=== PATIENT | female | born 1970 | race Caucasian/White ===

== ENCOUNTER 2016-05-06 04:58 | Observation (INO) | payer OTHER ==
[~2016-05-06] VITALS: Ht 170.2 cm; Wt 70.0 kg
[2016-05-06 05:01] VITALS: BP 148/84; PULSE 98; RESP 22; O2SAT 99
[2016-05-06 05:24] VITALS: BP 142/78; PULSE 98; RESP 20; O2SAT 96
[2016-05-06] MEDS ORDERED: 0.9% Sodium Chloride 1,000 ML IV ONE (05:28)
[2016-05-06] MEDS ORDERED: HYDROmorphone 1 mg/mL Inj IVPUSH ONE (05:30)
[2016-05-06] MEDS ORDERED: Ondansetron 2 mg/mL 2 mL Inj IVPUSH ONE (05:30)
[2016-05-06] MEDS ORDERED: Pantoprazole 4 mg/mL 10 mL Inj IVPUSH ONE (05:30)
[2016-05-06 05:44] LABS: INR 0.99 ratio; Mean Corpuscular Hemoglobin 31.6 pg (27.0-35.0); Mean Corpuscular Volume 91 fL (81-100)
[2016-05-06 05:45] LABS: BASOPHILS % (AUTO) 0.2 % (0-3); EOSINOPHILS % (AUTO) 0.1 % (0-5); MONOCYTES % (AUTO) 7.1 % (4-12); NEUTROPHILS % (AUTO) 85.8 % (40-74); Platelet Count 287 bil/L (150-400)
[2016-05-06 05:47] LABS: Magnesium 1.8 mg/dL (1.6-2.6)
--- NOTE | 2016-05-06 06:07 | ED.REPORT ---
HPI-Abd Pain F 40 and Over Date of Service May 06, 2016 ED Provider: Mack Landrum MD Patient is a 46 year old female who presents to the ED with epigastric pain with sudden onset 2100 last night that radiates down to her pelvis. Associated symptoms include nausea and vomiting. She denies back pain, dysuria, diaphoresis , or any other symptoms. She had 2 glasses of white wine last night. Nursing Notes Stated Complaint: ABD PAIN/ VOMITING Chief Complaint: Female Abdominal Pain Nursing Notes Reviewed: Yes Allergies: Uncoded Allergies: METRODIAZOLE (Allergy, Mild, 05/06/16) General Time Seen by MD: 05:18 Chief Complaint Abdominal pain Hx Obtained From: Patient Arrived By: Walk-in Sudden in Onset?: Yes Onset Occurred: 9 - 12 hours ago Symptom Duration: Since onset Past Medical History Past Medical History Reports: Depression Past Surgical History Rotator cuff Smoking History Former Smoker Social History Alcohol Use: "Social" Drug Use: Denies drug use Other Social History: Good social support, , Local resident Ambulatory Status Independent Review of Systems GI: Reports: Abdominal pain (Epigastric ), Nausea, Vomiting Female: Reports: Pelvic pain (Secondary to abdominal pain), Denies: Dysuria, Flank pain Complete sys rev & neg: except as marked. Skin: Denies Diaphoresis Physical Exam Vital Signs Vital Signs (First) Date Time Temp Pulse Resp B/P Pulse Ox O2 Delivery O2 Flow Rate FiO2 05/06/16 05:01 36.8 98 22 148/84 99 Room Air Initial VS: Reviewed Head / Eyes: Atraumatic, Normocephalic Skin: Warm, Dry Neurologic: Alert, Oriented, Nonfocal Psychiatric: Mood/affect normal, Behavior normal, Normal thought content General/Constitutional: Awake, Alert, Well developed Respiratory / Chest: Atraumatic, Breath sounds NL, Breath sounds = bilat, No respiratory distress Cardiovascular: Heart rate NL, Regular rhythm, Heart sounds NL Tenderness/Guarding/Rebound: Positive: Tender RLQ... (Moderate) RLQ tenderness with garding and rebound Back: Atraumatic Interpretation & Diagnostics US PELVIS: IMPRESSION: 1.6 cm dominant right adnexal cyst with dependent echogenic material , likely a small functional hemorrhagic cyst given the patient's age. In the setting of right pelvic pain, 6-12 week followup pelvic ultrasound may be considered to confirm expected size decrease or resolution of this finding. Dictated by: Alfredo Pedraza M.D. on 05/06/2016 at 11:09 Approved by: Alfredo Pedraza M.D. on 05/06/2016 at 11:09 Lab Results Interpretation Result Diagram: 05/06/16 0517 05/06/16 0517 Test 05/06/16 05:17 05/06/16 08:50 White Blood Count 10.8th/mm3 (3.8-10.1) Red Blood Count 4.11mil/mm3 (3.90-5.20) Hemoglobin 13.0g/dL (12.0-15.6) Hematocrit 37.4% (35.0-46.0) Mean Corpuscular Volume 91fL (81-100) Mean Corpuscular Hemoglobin 31.6pg (27.0-35.0) Mean Corpuscular Hemoglobin Concent 34.8% (32.0-37.0) Red Cell Distribution Width 12.5% (12.3-15.4) Platelet Count 287bil/L (150-400) Neutrophils (%) (Auto) 85.8% (40-74) Lymphocytes (%) (Auto) 6.8% (14-46) Monocytes (%) (Auto) 7.1% (4-12) Eosinophils (%) (Auto) 0.1% (0-5) Basophils (%) (Auto) 0.2% (0-3) Hold Purple Top Tube Received (Received) Prothrombin Time 10.6sec (8.1-12.5) Prothromb Time International Ratio 0.99ratio Hold Blue Top Tube Received (Received) Sodium Level 137mEq/L (134-144) Potassium Level 4.0mEq/L (3.5-5.2) Chloride Level 98mEq/L (97-108) Carbon Dioxide Level 23mmol/L (18-29) Blood Urea Nitrogen 15mg/dL (6-24) Creatinine 0.67mg/dL (0.57-1.00) Estimat Glomerular Filtration Rate 135mL/min (>59) Glucose Level 133mg/dL (60-99) Calcium Level 9.4mg/dL (8.5-10.1) Magnesium Level 1.8mg/dL (1.6-2.6) Total Bilirubin 0.4mg/dL (0.0-1.2) Aspartate Amino Transf (AST/SGOT) 39U/L (0-50) Alanine Aminotransferase (ALT/SGPT) 39U/L (0-32) Alkaline Phosphatase 49U/L (25-150) Total Protein 7.6g/dL (6.4-8.4) Albumin 4.2g/dL (3.4-5.0) Lipase 27U/L (13-60) Hold [place] Top Tube Received (Received) Hold [place]ique Top Tube Received (Received) Urine Color Yellow (YELLOW) Urine Appearance Clear (CLEAR,HAZY) Urine pH 6.5 (5.0-8.0) Urine Specific [place] 1.020 (1.003-1.035) Urine Protein Negativemg/dL (NEG,TRACE) Urine Glucose (UA) Negativemg/dL (NEGATIVE) Urine Ketones 80mg/dL (NEGATIVE) Urine Occult Blood Negative (NEGATIVE) Urine Nitrite Negative (NEGATIVE) Urine Bilirubin Negative (NEGATIVE) Urine Urobilinogen Normalmg/dL (NORMAL) Urine Leukocyte Esterase Negative (NEGATIVE) Urine RBC 0-2/hpf (0-2) Urine WBC 0-5/hpf (0-5) Urine Epithelial Cells Few/hpf (NONE-MOD) Urine Crystals None seen (NONE SEEN) Urine Bacteria Few/hpf (NONE-FEW) Urine Hyaline Casts None/lpf (NONE) Urine Granular Casts None seen (NONE SEEN) Urine Waxy Casts None seen (NONE SEEN) Urine Red Blood Cell Casts None seen (NONE SEEN) Urine White Blood Cell Casts None seen (NONE SEEN) Urine Mucus None seen (None Seen) Urine Trichomonas None seen (NONE SEEN) Urine Yeast None (NONE SEEN) Urinalysis Comment None Urine Culture Reflexed Not indicated CT Abd / Pelvis Interpretation IMPRESSION: No imaging explanation for right lower quadrant abdominal pain. The appendix appears normal in caliber. Dictated by: Alfredo Pedraza M.D. on 05/06/2016 at 9:30 Approved by: Alfredo Pedraza M.D. on 05/06/2016 at 9:30 Study type: Abdom CT oral contrast Interpretation / Wet Read by: Interpret - Radiologist Re-Eval/Medical Decision Med Decision/Clinical Course Despite the normal imaging and minimally abnormal laboratory data, I am concerned about subacute appendicitis none the less. We will admit her for observation to surgery. Re-Evaluation/Progress #1: Time of Eval: 09:55 )( Re-Eval Abdomen: Tenderness Re-Evaluation/Progress Note: Rechecked patient discussed CT results and desire for ultrasound. Patient understands and agrees with plan. All questions addressed at this time. Re-Evaluation/Progress #2: Time of Eval: 11:38 )( Re-Eval Abdomen: Tenderness Re-Evaluation/Progress Note: Discussed need for admission. Patient understands and agrees with plan. All questions addressed at this time. Consultation : Referral / Consult Name: Shari Gong MD Consulted With: Surgeon Call Returned at: 10:56 Trampoline Team Coach: Will see patient, Agrees with plan, Accepts admit Note: Discussed patient's case. Agrees to see patient. Admitted Counseled Regarding: Diagnosis, Lab results, Need for admission Discharge & Departure Primary Impression: Acute abdominal pain Disposition: ADMITTED TO HOSPITAL Referrals: Ivette Antonio (PCP) Scribe Attestation Portions of this note were transcribed by Felipa Tucker. I, Dr. Landrum personally performed the history, physical exam and medical decision-making; I reviewed and confirmed the accuracy of the information in the transcribed note. Signed by: Felipa Tucker 05/06/2016, 1150 copies to: Ivette Antonio Kirk H MD May 06, 2016 06:07 FELIPA TUCKER May 06, 2016 07:31
[2016-05-06 06:49] VITALS: BP 132/72; PULSE 95; RESP 12; O2SAT 96
[2016-05-06] MEDS ORDERED: Promethazine Inj 25 MG in Dextrose 5%-Pha MIX 50 ML IV ONE (06:55)
[2016-05-06] MEDS ORDERED: Iohexol 300 mg/mL 30 mL Inj PO ONE (07:45)
[2016-05-06 09:09] LABS: APPEARANCE,URINE CLEAR (CLEAR,HAZY); COLOR,URINE YELLOW (YELLOW); OCCULT BLOOD,URINE NEGATIVE (NEGATIVE); PH,URINE 6.5 (5.0-8.0); UROBILINOGEN,URINE NORMAL (NORMAL)
--- NOTE | 2016-05-06 09:31 | DRSVH ---
PROCEDURE: CT ABDOMEN AND PELVIS WITHOUT CONTRAST ([id number]) INDICATIONS: 46 year-old female with right lower quadrant pain. TECHNIQUE: Patient declined intravenous contrast. After the administration of oral contrast, 5 mm thick sections acquired from the diaphragms to the symphysis. 5 mm coronal and sagittal reformats were performed. For radiation dose reduction, the following was used: automated exposure control, adjustment of mA and/or kV according to patient size. COMPARISON: None. FINDINGS: Image quality: Excellent. ABDOMEN: Lung bases: Lung bases are clear. Heart size is normal. Solid organs: Liver and spleen are normal in size. Gallbladder wall thickness is normal. Pancreas is normal in size. No adrenal nodules. Both kidneys are normal in size, without hydronephrosis or n ephrolithiasis. Peritoneum and bowel: Bowel loops demonstrate normal wall thickness and caliber. The appendix is no rmal in overall caliber at 7 mm, best seen on coronal image 22. No free fluid or air. Nodes and vessels: No retroperitoneal or mesenteric adenopathy by size criteria. Aorta and inferior vena cava are normal in size. Miscellaneous: No ventral hernias. PELVIS: Genitourinary: Bladder wall thickness is normal. Uterus is normal in size. The ovaries are not well seen in the absence of intravenous contrast. Miscellaneous: No inguinal hernias or adenopathy. Bones: No suspicious bony lesions. No vertebral body compression fractures. IMPRESSION: No imaging explanation for right lower quadrant abdominal pain. The appendix appears norm al in caliber. Dictated by: Alfredo Pedraza M.D. on 05/06/2016 at 9:30 Approved by: Alfredo Pedraza M.D. on 05/06/2016 at 9:30
[2016-05-06] MEDS ORDERED: Ondansetron 2 mg/mL 2 mL Inj IVPUSH PRN ×2 (09:50→11:15)
[2016-05-06] MEDS: HYDROmorphone 0.5 mg/0.5 mL iSecure Syringe IVPUSH PRN (10:04)
--- NOTE | 2016-05-06 11:11 | DRSVH ---
PROCEDURE: US PELVIC SONOGRAM + TRANSVAGINAL SONOGRAM INDICATIONS: 46 year-old female with right lower quadrant abdominal pain. TECHNIQUE: Real-time scanning was performed of the pelvic organs, with image documentation. Additional endovagi nal scanning was necessary due to incomplete visualization of the adnexal and endometrial structures by transabdominal scanning. COMPARISON: [facility], CT, CT ABD PELVIS WO CON, 05/06/2016, 9:11. FINDINGS: Transabdominal scanning: No pathologic free abdominal or pelvic fluid. Endovaginal scanning: Uterus: Uterus is normal in size at 9.6 x 6.9 x 4.8 cm. The endometrium measures 11.2 mm in combine d thickness. Ovaries: Both ovaries appear normal in size, measuring 3.7 x 2.4 x 1.6 cm on the right, and 2.3 x 1.9 x 1.1 cm on the left. Dominant right adnexal cyst measures 1.6 x 1.1 x 1.6 cm, containing dependent echogenic material. IMPRESSION: 1.6 cm dominant right adnexal cyst with dependent echogenic material, likely a small func tional hemorrhagic cyst given the patient's age. In the setting of right pelvic pain, 6-12 week follo wup pelvic ultrasound may be considered to confirm expected size decrease or resolution of this findi ng. Dictated by: Alfredo Pedraza M.D. on 05/06/2016 at 11:09 Approved by: Alfredo Pedraza M.D. on 05/06/2016 at 11:09
[2016-05-06] MEDS ORDERED: Piperacillin-Tazo 3.375 Gm Inj 3.375 GM in Dextrose 5% Minibag Plus 50 ML IV ONE (11:15)
--- NOTE | 2016-05-06 13:11 | HP ---
[address] [address] HISTORY AND PHYSICAL PATIENT: AZAM NGUYEN : 1970 MR#: [id number] ADMIT: 05/06/2016 JOB ID: [id number] CHIEF COMPLAINT: Abdominal pain. This consultation was requested by Mack Landrum MD of the Emergency Department. HISTORY OF PRESENT ILLNESS: This is a 47-year-old healthy woman who presented to the emergency department today with abdominal pain. It began late last night around 11 p.m. after she went to bed and migrated to the right lower quadrant. She also had vomiting. Initially she thought she was having a gastroenteritis syndrome based on what she ate last night, however, the pain persisted as well as nausea, so she presented to the emergency department. White blood cell count was 10.8. CT scan of the abdomen and pelvis was ordered and reveals a 7 mm appendix, with no imaging explanation for right lower quadrant abdominal pain. Pelvic ultrasound was then performed which shows a right adnexal cyst with dependent echogenic material, 1.6 cm in size, likely a small functional hemorrhagic cyst. Because her history and physical examination are very consistent with acute appendicitis, Dr. Landrum asked my opinion with regards to whether she could have a low-grade early acute appendicitis not detectable on CT scan. PAST MEDICAL HISTORY: Depression. PAST SURGICAL HISTORY: 1. Breast augmentation. 2. Varicose vein surgery. 3. Right shoulder surgery. MEDICATIONS: Wellbutrin. ALLERGIES: METRONIDAZOLE. FAMILY HISTORY: Maternal aunt has multiple myeloma. SOCIAL HISTORY: She quit smoking 16 years ago, drinks approximately one alcoholic beverage daily on average, and lives with her and two adult children. Ivette Antonio is her nurse practitioner, and is also her best friend, and is present in the room today along with her . REVIEW OF SYSTEMS: Eleven point review of systems is positive for abdominal pain, nausea, vomiting, pelvic pain, and is otherwise negative. PHYSICAL EXAMINATION: Temperature 36.8, heart rate 98, blood pressure 148/84, respiratory rate 22, saturation 99% on room air. General: Awake, alert, no acute distress. Head: Normocephalic. Neck: Supple. Cardiac: Regular rate and rhythm. She has a soft systolic murmur. Respiratory: Clear to auscultation bilaterally. Abdomen: Soft, flat, nondistended. She is very tender at McBurney point between the ASIS and umbilicus. Nontender in the remaining quadrants of the abdomen. No rebound or guarding. Extremities: No edema. Skin: No outstanding lesions. Psychiatric: Normal cognition and judgment. LABORATORIES: White blood cell count is 10.8. CBC is otherwise within normal limits. Comprehensive metabolic panel is otherwise within normal limits with the exception of ALT of 39. INR is 0.99. Urinalysis is normal. IMAGING: Images from the CT scan of the abdomen and pelvis are personally reviewed. Her appendix is visible and when I measure myself on coronal imaging it seems to be closer to 10 mm in size. However, the radiologist measures it to be 0.7 cm in size. There is no associated fat stranding. As noted above, pelvic ultrasound shows a right adnexal cyst, which looks like a small functional hemorrhagic cyst given her age. ASSESSMENT: A 46-year-old woman with a history of physical examination very consistent with acute appendicitis, but without overt appendicitis on CT scan. RECOMMENDATIONS: I recommend administration of antibiotics and admission with observation in the hospital. I discussed with this patient that if a CT scan had not been performed, her overall clinical picture would be very consistent with acute appendicitis and appendectomy would be recommended. However, in the setting of an otherwise normal-appearing CT scan, this does have a chance of resulting in a negative appendectomy, meaning that she would not have had appendicitis. We also discussed the risk of failure with treatment with antibiotics in the setting of early acute appendicitis, if indeed she does have appendicitis. This includes the risk of needing to have the appendix removed at a later date, which is a possibility. She prefers non operative management at this time and, therefore, will be admitted and antibiotics will be administered. If her symptoms improve, it is possible that she will be discharged with antibiotics alone. However, I did offer her consideration of laparoscopy with appendectomy if she is willing to undergo the risks of indicative appendectomy. She wants to discuss this with her , and in the meantime, would like to avoid surgery.
[2016-05-06 14:28] VITALS: BP 115/74; PULSE 68; RESP 16; O2SAT 98
[2016-05-06] MEDS: 0.9% Sodium Chloride 1,000 ML IV SCH (15:28)
[2016-05-06] MEDS ORDERED: bupropion PO (19:08)
--- NOTE | 2016-05-06 19:40 | NUR ---
Arrival to Floor Patient arrived to floor from ED. Patient alert and oriented, no nausea but complains of headache. Patient given 975 of Tylenol, which was effective for headache. Ordered IV fluids administered. Care is ongoing.
[2016-05-06 21:16] VITALS: BP 134/86; PULSE 70; RESP 18; O2SAT 98
[2016-05-06] MEDS: Piperacillin-Tazo 3.375 Gm Inj 3.375 GM in Dextrose 5% Minibag Plus 50 ML IV SCH (23:14)
[2016-05-07] VITALS (10 sets, daily range): BP systolic 107–154; BP diastolic 60–83; PULSE 68–104; RESP 14–20; O2SAT 94–100
[2016-05-07] MEDS: Piperacillin-Tazo 3.375 Gm Inj 3.375 GM in Dextrose 5% Minibag Plus 50 ML IV SCH ×2 (00:30→10:39)
[2016-05-07] MEDS: 0.9% Sodium Chloride 1,000 ML IV SCH ×3 (00:49→17:14)
[2016-05-07 03:41] LABS: Mean Corpuscular Hemoglobin 31.2 pg (27.0-35.0)
[2016-05-07] MEDS: HYDROmorphone 0.5 mg/0.5 mL iSecure Syringe IVPUSH PRN (05:00)
[2016-05-07] MEDS ORDERED: MetoCLOpramide 5 mg/mL 2 mL Inj IV PRN (07:00)
--- NOTE | 2016-05-07 08:21 | NUR ---
C/o headache overnight. States history of migraines. Tylenol given and patient states pain reduced to 3. She slept, then awoke with increased headache rated 8-9. IV dilaludid 0.5mg given and pain again reduced to 3 but within 1hr she had nausea and vomiting that she attributes to the narcotic. Headache again increased, Zofran given but ineffective for nausea, so IV Reglan administered and day shift to reassess.
[2016-05-07] MEDS ORDERED: fentaNYL-PF 50 mCg/mL 2 mL Inj IVPUSH PRN (10:40)
[2016-05-07] MEDS ORDERED: Lactated Ringer's 500 ML IV PRN (10:40)
[2016-05-07] MEDS ORDERED: Phenylephrine 10,000 mCg/mL Inj IVPUSH PRN (10:40)
[2016-05-07] MEDS ORDERED: HYDROmorphone 1 mg/mL Inj IVPUSH PRN (10:40)
[2016-05-07] MEDS ORDERED: Dexamethasone 4 mg/mL Inj IVPUSH PRN (10:40)
[2016-05-07] MEDS ORDERED: EPHEDrine Sulfate 50 mg/mL Inj IVPUSH PRN (10:40)
[2016-05-07] MEDS ORDERED: Lactated Ringer's 1,000 ML IV SCH (10:40)
--- NOTE | 2016-05-07 10:40 | PCM.HPANE ---
Patient Data Surgeon Admitting Provider:Shari Gong MD Attending Provider:Shari Gong MD Primary Care Physician:Ivette Antnoio Other Provider: Reason for Visit Abd Pain Ht/WT & BMI Height (Feet): 5 Height (Inches): 7.00 Weight (Kilograms): 70.000 Body Mass Index 24.22 Allergies Coded Allergies: metronidazole (Unverified Allergy, Mild, UNKNOWN, 05/06/16) Past Anesthesia History Anesthesia History: Positive for:: Anesthesia Reactions (Very nauseated when coming out of anesthesia) Diabetes History Hx Diabetes?: No MRSA MRSA: No Medications Reported Medications [bupropion] No Conflict [id number] Mg PO DAILY 05/06/16 History History of ENT Problems?: No HEENT History: Denies:: Cataracts Dysphagia Glaucoma Sinus Problem Hx of Heart Problems?: No Cardiovascular History: Denies:: Cardiac Surgery Chest Pain Congestive Heart Failure Edema Heart Murmur Hypertension Irregular Heartbeat Pacemaker Thrombophlebitis Hx of Respiratory Problem?: No Hx Neurologic Problems?: No Hx of GI Problems?: Yes Other GI Pertinent History: Patient reports history of IBS. Hx of Problems?: No Female Hx: Denies:: Currently Endometriosis Pelvic Inflammatory Problems with Breasts? Hx Musculoskeletal Problems?: Yes Hx of Psycho/Social Problems?: No Hx Surgeries?: Yes (Roator cuff/labrium, bicep) Hx Any Other Health Problems?: No Other History: Denies:: Cancer Hospitalization Thyroid Disease History Blood Transfusions: Positive for:: Accept Blood Products? Denies:: Blood Transfuse Reaction Blood Transfusions Hx Diabetes: No Hx Alcohol Use: Yes (Socially)Alcoholic Drinks Per Day: "Two glasses of wine a few times per week"Hx Substance Use: No Smoking Status: Former Smoker Have You Smoked inLast 12 mo: No Stop/Bang Treated for Sleep Apnea?: No Do You Have a CPAP Machine?: No S-Snoring: Do You Snore Loudly: No T-Tired: feel tired, fatigued: No O-Obsered: Observed not breath: No P-Blood Pressure: treated: No B- Body Mass Index > 35 kg/m2: No A- Age over 50: No N- Neck Large Circumference: No G- Gender Male: No GLENDY Total Score: 0 Risk Assessment Category Category 1A: Patient has history of documented sleep apnea, and HAS NOT received any narcotic, sedative or anesthesia administration during this stay. Category 1B: Patient has history of documented sleep apnea, and HAS received any narcotic , sedative or anesthesia administration during this stay Category 2: Patient has SUSPECTED Obstructive Sleep Apnea, and HAS received any narcotic , sedative or anesthesia administration during this stay. Category 3: Patient has SUSPECTED Obstructive Sleep Apnea and HAS NOT received narcotic, sedative or anesthesia administration during this stay. Category 4: Outpatient in Procedural Areas with known sleep apnea or who screen positive for High Risk via the STOP/BANG questionnaire. Exam Exam Vital Signs Vital Signs Date Time Temp Pulse Resp B/P Pulse Ox O2 Delivery O2 Flow Rate FiO2 05/07/16 10:18 36.8 85 18 136/77 97 05/07/16 05:26 37.1 68 18 107/60 95 Room Air General Appearance: Alert, Oriented X3, Cooperative HEENT/AIRWAY: MP 2 Lungs: Normal Air Movement Heart: Exam Unremarkable Meds/Labs/Diagnostics Admission Meds Current Medications Piperacillin Sod/ Tazobactam Sod 3.375 gm/Dextrose/ Water 50 ml @ 100 mls/hr ONCE ONCE IV Last administered on 05/06/16at 12:03; Start 05/06/16 at 11:15; Stop 05/06/16 at 11:44; Status DC Sodium Chloride 1,000 ml @ 100 mls/hr Q10H IV Last administered on 05/07/16 10 :32; Start 05/06/16 at 11:14 Piperacillin Sod/ Tazobactam Sod/ Dextrose/Water (Zosyn 3.375 Gm Inj/D5W Minibag Plus) 50 ml @ 12.5 mls/hr Q8 IV Last administered on 05/06/16at 23:14 ; Start 05/06/16 at 21:15 Sumatriptan Succinate (Imitrex) 100 mg OT ONCE PO Last administered on 09:02; Start 05/07/16 at 06:50; Stop 05/07/16 at 06:51; Status DC Labs Test 05/06/16 05:17 05/06/16 08:50 05/07/16 03:25 Neutrophils (%) (Auto) 85.8% (40-74) Lymphocytes (%) (Auto) 6.8% (14-46) Monocytes (%) (Auto) 7.1% (4-12) Eosinophils (%) (Auto) 0.1% (0-5) Basophils (%) (Auto) 0.2% (0-3) Hold Purple Top Tube Received (Received) Prothrombin Time 10.6sec (8.1-12.5) Prothromb Time International Ratio 0.99ratio Hold Blue Top Tube Received (Received) Sodium Level 137mEq/L (134-144) Potassium Level 4.0mEq/L (3.5-5.2) Chloride Level 98mEq/L (97-108) Carbon Dioxide Level 23mmol/L (18-29) Blood Urea Nitrogen 15mg/dL (6-24) Creatinine 0.67mg/dL (0.57-1.00) Estimat Glomerular Filtration Rate 135mL/min (>59) Glucose Level 133mg/dL (60-99) Calcium Level 9.4mg/dL (8.5-10.1) Magnesium Level 1.8mg/dL (1.6-2.6) Total Bilirubin 0.4mg/dL (0.0-1.2) Aspartate Amino Transf (AST/SGOT) 39U/L (0-50) Alanine Aminotransferase (ALT/SGPT) 39U/L (0-32) Alkaline Phosphatase 49U/L (25-150) Total Protein 7.6g/dL (6.4-8.4) Albumin 4.2g/dL (3.4-5.0) Lipase 27U/L (13-60) Hold [place] Top Tube Received (Received) Hold Monique Top Tube Received (Received) Urine Color Yellow (YELLOW) Urine Appearance Clear (CLEAR,HAZY) Urine pH 6.5 (5.0-8.0) Urine Specific [place] 1.020 (1.003-1.035) Urine Protein Negativemg/dL (NEG,TRACE) Urine Glucose (UA) Negativemg/dL (NEGATIVE) Urine Ketones 80mg/dL (NEGATIVE) Urine Occult Blood Negative (NEGATIVE) Urine Nitrite Negative (NEGATIVE) Urine Bilirubin Negative (NEGATIVE) Urine Urobilinogen Normalmg/dL (NORMAL) Urine Leukocyte Esterase Negative (NEGATIVE) Urine RBC 0-2/hpf (0-2) Urine WBC 0-5/hpf (0-5) Urine Epithelial Cells Few/hpf (NONE-MOD) Urine Crystals None seen (NONE SEEN) Urine Bacteria Few/hpf (NONE-FEW) Urine Hyaline Casts None/lpf (NONE) Urine Granular Casts None seen (NONE SEEN) Urine Waxy Casts None seen (NONE SEEN) Urine Red Blood Cell Casts None seen (NONE SEEN) Urine White Blood Cell Casts None seen (NONE SEEN) Urine Mucus None seen (None Seen) Urine Trichomonas None seen (NONE SEEN) Urine Yeast None (NONE SEEN) Urinalysis Comment None Urine Culture Reflexed Not indicated White Blood Count 3.7th/mm3 (3.8-10.1) Red Blood Count 3.56mil/mm3 (3.90-5.20) Hemoglobin 11.1g/dL (12.0-15.6) Hematocrit 33.1% (35.0-46.0) Mean Corpuscular Volume 93.0fL (81-100) Mean Corpuscular Hemoglobin 31.2pg (27.0-35.0) Mean Corpuscular Hemoglobin Concent 33.5% (32.0-37.0) Red Cell Distribution Width 13.1% (12.3-15.4) Platelet Count 218bil/L (150-400) Plan Impression Patient chart reviewed, patient interviewed and anesthestic plan with risks, benefits, and alternatives discussed, and informed consent obtained. ASA Physical Status: ASA2 Mod Systemic Disease Anesthetic Plan: GA Bene/Risks/Altern/Consents: Yes HP Complete Prior to Induction: Yes Eliel Bautista MD May 07, 2016 10:40
[2016-05-07] MEDS ORDERED: fentaNYL-PF 50 mCg/mL 2 mL Inj ONE (12:00)
[2016-05-07] MEDS ORDERED: Dexamethasone 4 mg/mL Inj ONE (13:25)
[2016-05-07] MEDS ORDERED: Ondansetron 2 mg/mL 2 mL Inj ONE (13:25)
[2016-05-07] MEDS ORDERED: Propofol 10,000 mCg/mL 20 mL Inj ONE (13:25)
[2016-05-07] MEDS ORDERED: Rocuronium 10 mg/mL 5 mL Inj ONE (13:25)
--- NOTE | 2016-05-07 14:29 | NUR ---
To OR Pt NPO since midnight, IV SL, report given to LUCY Julian OR. Consent has not yet been signed, needs more detail from doctor. Pt a&ox3, able to walk to [facility] w/ strong steady gait.
--- NOTE | 2016-05-07 14:56 | PROG NOTE ---
[address] [address] PROGRESS NOTE PATIENT: AZAM NGUYEN : 1970 MR#: [id number] ADMIT: 05/06/2016 JOB ID: [id number] DATE: 05/07/2016 SUBJECTIVE: This is a 46-year-old woman with history and physical findings consistent with acute appendicitis. Although her CT scan was read as negative by the radiologist, on my assessment it is equivocal. Overnight she had a migraine and required Imitrex. She has been n.p.o. She continues to have pain at McBurney's point in her abdomen. She is worried that she may have appendicitis that is not resolving. OBJECTIVE: Vital signs are within normal limits. General: Awake, alert. Mild distress due to her headache. Abdomen: Tenderness at McBurney's point is the same compared to yesterday. Her abdomen is otherwise flat and soft, without tenderness of the remaining quadrants. ASSESSMENT: A 46-year-old woman with probable early acute appendicitis. No change in clinical status compared to yesterday. PLAN: We re-discussed observation and antibiotics approach versus considering surgical appendectomy. With all the potential factors, the patient and I decided together to proceed with laparoscopic appendectomy, which will both provide an answer as to whether not she does indeed have acute appendicitis, which I highly suspect she does, and will probably relieve the pain that she is experiencing in the right lower quadrant and relieve her of the concern for recurrent appendicitis in the future. We discussed all the risks and benefits, including the risk of negative appendectomy, she elects to proceed.
[2016-05-07] MEDS ORDERED: Bupivacaine-MPF 0.5% W/EPI 30 mL Inj INFILTRATE ONE (15:11)
[2016-05-07] MEDS ORDERED: Lactated Ringer's 1,000 ML IV ONE (15:11)
--- NOTE | 2016-05-07 16:10 | PCM.ANEP1 ---
Post Anesthesia Phase 1 PACU Phase 1 Assessment Vital Signs Vital Signs Date Time Temp Pulse Resp B/P Pulse Ox O2 Delivery O2 Flow Rate FiO2 05/07/16 10:18 36.8 85 18 136/77 97 Anesthetic Administered: GA GALICIA's with Equal Strength: Yes Pain: No (Headache, 5/10) Pain Scale Score: 7 Nausea or Vomiting: No Oxygen Delivery: Room Air Lungs: Normal Air Movement Dermatome Level: Full Sensation Eliel Bautista MD May 07, 2016 16:10
--- NOTE | 2016-05-07 16:11 | PCM.ANEP2 ---
Post Anesthesia Evaluation ASA/CMS Post Anesthesia VS in Patient's Normal Range?: Yes Resp Stable; Airway Patent?: Yes CV Function & Hydration Stable: Yes Mental Status Recovered?: Yes Pain control Satisfactory?: Yes N/V Control Satisfactory?: Yes Eliel Bautista MD May 07, 2016 16:11
[2016-05-07] MEDS ORDERED: Sodium Chloride LOK Flush 10 mL Syringe IVFLUSH PRN (16:35)
[2016-05-07] MEDS ORDERED: MetoCLOpramide 5 mg/mL 2 mL Inj IVPUSH PRN (16:35)
--- NOTE | 2016-05-07 16:48 | PCM.SURGOP ---
Surgical Operative Report Date of Service: May 07, 2016 Pre Operative Diagnosis Acute appendicitis Post Operative Diagnosis Acute appendicitis Procedure: Laparoscopic appendectomy Surgeon and Grain Elevator Agent: Surgeon: Shari Gong M.D. Assistants: None Indication for Procedure This is a 46-year-old woman who presented with abdominal pain which was epigastric and progressed to the right lower quadrant. She underwent CT scan which was read by the radiologist as negative for appendicitis. She also underwent a transvaginal ultrasound and ovaries did not appear to have pathology to explain her right lower quadrant tenderness. She underwent one night of observation with antibiotics in the hospital, but continued to have tenderness at McBurney's point. After thorough discussion of risks and benefits , decision was made to proceed to laparoscopic appendectomy. Findings: Inflamed, enlarged appendix consistent with acute appendicitis. Moderate benign free fluid in the pelvis. Procedure Details The patient was brought to the operating room and placed in supine position. General endotracheal anesthesia was smoothly induced. Antibiotics had been infused previously in the emergency department. A warming blanket and SCDs were placed. The operative field was prepped and draped in sterile fashion. A Hebert had been placed. A pause was performed to confirm the correct patient, procedure, and site. The abdomen was entered using an infraumbilical transverse incision with a 12 mm Lucila port under direct vision. Two additional 5 mm ports were placed in the midline, one in the lower abdomen and one at a suprapubic site. The appendix was then identified and retracted cephalad. The tip was inflamed and the base appeared normal. A window was made at the base of the appendix and a 45 mm blue load Endo-EMILEE stapler was fired to resect the entire appendix from the cecum. Prior to firing the stapler, the entire cecum and terminal ileum were identified to confirm that no narrowing would occur to the lumen of either. The appendiceal mesentery was divided slowly and deliberately with electrocautery. The appendix was removed using an EndoCatch bag via the infraumbilical port site. The abdomen was inspected and there was no pus, murky fluid, or bleeding. The 5 mm ports were removed. The infraumbilical port site was closed with an 0 PDS [id number] stitch. 0.5% Marcaine with epinephrine was injected into the fascia at the infraumbilical port site and into the skin at all port sites. The skin was closed with 4-0 Monocryl and sterile dressings were applied. The patient was awakened from general anesthesia and taken to the postoperative care unit in good condition. Complications There were no periprocedural complications identified. Surgical Specimen Removed: Yes Specimen sent to Pathology: Yes Anesthetic Plan: GA Grafts, Implants: None Output, Estimated Blood Loss: 2 (ml) Blood Administration during hemphill: No Shari Gong MD May 07, 2016 16:48
--- NOTE | 2016-05-07 17:13 | NUR ---
Post Op Pt arrived to rm 1027 from PACU via gurney. Rec'd report from LUCY Wiggins. Pt able to ambulate to BR, void, and walk back to hospital bed. Complains of 3/10 pain, states this is tolerable. Dressings c/d/i. Educated pt on importance of ambulation, log rolls, and potential for R shoulder pain. Pt currently sipping on ice water, concerned about post anesthesia nausea/vomiting. Paged Dr to get an order of promethazine, just in case. continue to monitor
[2016-05-07] MEDS ORDERED: Promethazine 25 mg/mL Inj IM PRN (17:15)
[2016-05-08] MEDS: 0.9% Sodium Chloride 1,000 ML IV SCH (02:53)
--- NOTE | 2016-05-08 02:54 | NUR ---
PAIN; requested non narcotic. Tylenol 975mg given with good effectiveness. Encouraged pt to ambulate in the hallway but pt declined, wanting to sleep.
[2016-05-08 04:31] VITALS: BP 105/56; PULSE 82; RESP 20; O2SAT 97
[2016-05-08 07:02] LABS: Mean Corpuscular Volume 93.1 fL (81-100)
--- NOTE | 2016-05-08 09:32 | PCM.PNSURG ---
Subjective Visit Information: Reason for Visit Abd Pain Surgery/Surgery Date LAPAROSCOPIC APPENDECTOMY Post-Op Day # Date of Admission: May 06, 2016 at 13:25 Hospital Day # Subjective: doing fine, abd feels better, a little bloated, passed some flatus but no BM Objective Objective Awake Abd: dressings dry and intact Neuro - conversant Vital Sign- Last 8 Hours Date Time Temp Pulse Resp B/P Pulse Ox O2 Delivery O2 Flow Rate FiO2 05/08/16 04:31 36.7 82 20 105/56 97 Room Air Intake and Output- Last 8 Hour 05/08/16 Cumulative From/Thru 07:00 05/06/16 05:01 - 05/08/16 06:23 Intake Total 600 ml 6620 ml Output Total 700 ml 2482 ml Balance -100 ml 4138 ml Intake Oral 600 ml 2536 ml IV Total 4084 ml Output Urine Total 700 ml 2470 ml Estimated Blood Loss 12 ml # Voids 1 Result Diagram: 05/08/16 0642 05/06/16 0517 Assessment & Plan Impression POD #1 s/p lap appendectomy Problems: Plan Home today F/U with Dr. Gong in 2-3 weeks Rx: oxycodone #20, ibuprofen 800mg #60. Karlos Pereira MD May 08, 2016 09:32
--- NOTE | 2016-05-08 09:34 | PCM.DISURG ---
Surgical Discharge Instruction Date of Service May 08, 2016 Dates of Hospitalization Date of Hospital Admission May 06, 2016 at 13:25 Providers Admitting Physician: Shari Gong MD Primary Care Physician: Ivette Antonio Attending Physician: Shari Gong MD Discharge Diagnosis Post Operative diagnosis Acute appendicitis Diet Discharge Diet: No restrictions Activity Discharge Activity-General: Balance rest and activity, Activity as pain allows , No driving while taking narcotic Dressing and Incisional Care Dressing Care: Keep dressing clean, dry & intact, Allow Steri Stripes to fall off Hygiene: May shower Additional Instructions Discharge Instructions Rx: oxycodone #20, ibuprofen #60 F/U with Dr. Gong in 2-3 weeks Follow Up Plan Follow-up Provider (F9): Shari Gong MD Follow-up appointment: Weeks (2-3) Call your provider for: Fever, Shortness of breath, Increasing abdominal pain, Vomiting, Wound redness, Discharge @ incision, pus discharge Karlos Pereira MD May 08, 2016 09:34
--- NOTE | 2016-05-08 10:19 | NUR ---
Discharge pt discharged at 1020 to home. IV d/c intact. Reviewed dc instructions w/ patient and her answered all questions. Pt declined offer of w/c to her 's POV and wished to walk. Pt left w/ strong steady gait w/ hard copy of RX and all belongings.
--- NOTE | 2016-05-09 10:32 | PCM.DC.SUR ---
Discharge Summary Date of Service: Date of Hospital Admission: May 06, 2016 at 13:25 Date of Operation(s): 05/06/16 Date of Discharge: 05/08/16 Diagnosis at Time of Discharge Primary diagnosis: Acute appendicitis Secondary diagnosis: Depression. PAST SURGICAL HISTORY: 1. Breast augmentation. 2. Varicose vein surgery. 3. Right shoulder surgery Problems: Operation Laparscopic Appendicitis Brief History and Physical: This is a 47-year-old healthy woman who presented to the emergency department today with abdominal pain. It began late last night around 11 p.m. after she went to bed and migrated to the right lower quadrant. She also had vomiting. Initially she thought she was having a gastroenteritis syndrome based on what she ate last night, however, the pain persisted as well as nausea, so she presented to the emergency department. White blood cell count was 10.8. CT scan of the abdomen and pelvis was ordered and reveals a 7 mm appendix, with no imaging explanation for right lower quadrant abdominal pain. Pelvic ultrasound was then performed which shows a right adnexal cyst with dependent echogenic material, 1.6 cm in size, likely a small functional hemorrhagic cyst. Because her history and physical examination are very consistent with acute appendicitis, Dr. Landrum asked my opinion with regards to whether she could have a low-grade early acute appendicitis not detectable on CT scan. Hospital Course: per Dr. Pereira progress Note POD # 1 Subjective: doing fine, abd feels better, a little bloated, passed some flatus but no BM Objective Awake Abd: dressings dry and intact Impression POD #1 s/p lap appendectomy Problems: Plan Home today F/U with Dr. Gong in 2-3 weeks Rx: oxycodone #20, ibuprofen 800mg #60. Pathology: Pending Disposition: D/C to Home Vital Sign- Last 8 Hours Date Time Temp Pulse Resp B/P Pulse Ox O2 Delivery O2 Flow Rate FiO2 05/08/16 04:31 36.7 82 20 105/56 97 Room Air Follow-up Plan: Dr. Gong 1-2 weeks ([bupropion]) 150 MG PO DAILY (Reported) Discharge Medications: Rx: oxycodone #20, ibuprofen #60 copies to: Ivette Antonio Sherri L PA-C May 09, 2016 10:32
--- NOTE | 2016-05-11 10:32 | PATH ---
SURGICAL PATHOLOGY Attending Physician:Shari Gong MD CASE STATUS: Signed Out PATIENT NAME: AZAM NGUYEN PID: [id number] : 1970 CASE NUMBER: [id number] DATE COLLECTED:05/07/2016 00:00 SPECIMEN: Appendix CLINICAL HISTORY: A: APPENDIX FINAL DIAGNOSIS: 1.APPENDIX: ACUTE APPENDICITIS. Negative for dysplasia and malignancy. ICD10 code K35.80 GROSS DESCRIPTION: The specimen is received in one formalin filled container labeled with the patient's name, sublabeled "appendix" and consists of a 6.0 x 1.0 x 1.0 CM cylindrical ridley appendix. The serosal surface is light ridley. There is a 4.0 x 1.5 x 0.7 CM portion of attached fatty tissue. Sectioning reveals the wall to be up to 0.3 CM in thickness. In the central portion of the lumen is a dark ridley-brown creamy material. 3 sales promotion representative sections are submitted in one cassette. 05/10/2016 DAC MICRO DESCRIPTION: See diagnosis. ICD-9 CODES: CPT CODES: 1: 39583 Electronically Signed Out Susan Garcia MD [facility] [address], [place] [address] Technical component performed at [facility], [address] [place] [address] Ave[address], [place], [address]
== END 2016-05-08 10:20 | disposition home or self-care (01) ==
LOC: SED 04:58 → OSC 13:25
PROVIDERS: ADMIT Surgery; ATTEND Surgery
DX: K35.80 Unspecified acute appendicitis (principal); F32.9 Major depressive disorder, single episode, unspecified
CPT/HCPCS: 36415; 44970; 74176; 76830; 76856; 80053; 81000; 81025; 83690; 83735; 85025; 85027; 85610; 93005; 96361; 96365; 96375; 96376; 99285; G0378; J1100; J1170; J2250; J2405; J2543; J2765; J7030; J7120; Q9967